=== PATIENT | female | born 1965 | race Caucasian/White ===

== ENCOUNTER → 2023-05-10 13:01 | Outpatient (REF) | payer BC, SELFPAY | LOC: HWWDC 13:01 | PROVIDERS: ATTENDING PHYSICIAN Obstetrics & Gynecology; FAMILY PHYSICIAN Internal Medicine; REFERRING PHYSICIAN Internal Medicine Hematology & Oncology | DX: Z12.31 Encounter for screening mammogram for malignant neoplasm of breast (principal) | CPT/HCPCS: 77063; 77067 ==

== ENCOUNTER → 2023-05-17 09:20 | Outpatient (REF) | payer BC, SELFPAY | LOC: WDC 09:20 | PROVIDERS: ATTENDING PHYSICIAN Obstetrics & Gynecology; FAMILY PHYSICIAN Internal Medicine | DX: R92.8 Other abnormal and inconclusive findings on diagnostic imaging of breast (principal) | CPT/HCPCS: 76642 ==

== ENCOUNTER → 2023-11-25 13:51 | Outpatient (REF) | payer BC, SELFPAY | LOC: HWRAD 13:51 | PROVIDERS: ATTENDING PHYSICIAN Obstetrics & Gynecology; FAMILY PHYSICIAN Internal Medicine | DX: N95.0 Postmenopausal bleeding (principal) | CPT/HCPCS: 76830; 76856 ==

== ENCOUNTER 2024-02-16 22:18 | Emergency (ER) | payer BC, SELFPAY ==
[2024-02-16 22:19] VITALS: BP 124/76
[2024-02-17 00:58] VITALS: BMI 29.9
--- NOTE | 2024-02-17 01:10 | ED.GENMED ---
History of Present Illness
<JIMBO Kelsey - Last Filed: 02/17/24 01:24>
General
Chief Complaint: Vaginal Bleeding
Source: patient
Exam Limitations: none
Time Seen by Provider: 02/17/24 00:55
Nursing documentation reviewed up to this point in time: agreed with
History of Present Illness
History of Present Illness:
Pt is a 58 yo F with PMH of Crohn's disease and uterine fibroids who presents to the ED for vaginal bleeding x 1 week. She states nothing has helped it to stop. She notes it is heavy and she goes through a pad about every 2 hours. Pt states she
entered menopause at age 41 and has had one episode of bleeding before back in 2023. She saw her [employer] for this and was diagnosed with uterine fibroids, but did not have follow up. She admits to associated pelvic pain that has been present
since onset of bleeding. She says it is episodic and crampy. Pt also admits to associated fever at home of 101.8F orally. She states she has not taken any medication to alleviate the pain. Pt went to urgent care earlier today for same symptoms and
dysuria where they diagnosed her with UTI and prescribed an abx, but she states it was worsening so she came here. Pt denies LIN, vomiting, diarrhea, chest pain, dyspnea.
Past History
<JIMBO Kelsey - Last Filed: 02/17/24 01:24>
Past History
ED Past Medical History: Asthma, Hypercholesterolemia and Other (Crohns, Erosive Gastritis, RA)
ED Past Surgical History: Cholecystectomy
Social History
Tobacco: Former smoker
Alcohol: Former
Personal:
Living: with family
Review of Systems
<JIMBO Kelsey - Last Filed: 02/17/24 01:24>
Review of Systems
Allergies reviewed?: Yes
Constitutional: Reports fever and chills; Denies fatigue or night sweats
EENT: Denies sore throat or runny nose
Respiratory: Denies cough or trouble breathing
Cardiac: Denies chest pain or palpitations
ABD/GI: Reports abdominal pain and nausea; Denies vomiting or diarrhea
: Reports dysuria, frequency, difficulty voiding and bleeding; Denies flank pain
Musculoskeletal: Denies back pain
Neurological: Denies dizzy or headache
Phy Exam
<JIMBO Kelsey - Last Filed: 02/17/24 01:24>
General Physical Exam
General Presentation: well appearing and no apparent distress
General age: appears stated age
General Skin: warm and dry
General Habitus: normal
General Mental: alert
General Hydration: appears well hydrated
Cardiovascular Exam
Cardiovascular Exam: regular rate/rhythm and no murmur
Pulmonary Exam
Pulmonary Exam: lungs clear and no respiratory distress
Gastrointestinal Exam
Gastrointestinal Exam: normal bowel sounds, soft and non distended
Palpation: generalized: Minimal tenderness
Neurological Exam
Neurological Exam: alert, oriented x3 and speech normal
Course
<JIMBO Kelsey - Last Filed: 02/17/24 01:24>
Orders/Labs/Results
Orders:
Orders
02/17/24 01:15
US Pelvis W Transvag Combined Urgent
Reason For Exam: vaginal bleeding
02/17/24 01:29
Blood Group&Type Urgent
Complete Blood Count/With Diff Urgent
Comprehensive Metabolic Panel Urgent
Urinalysis Reflex To Culture Urgent
Specimen Description:
Date Specimen was Collected: 02/17/24
Time Specimen was Collected: 01:27
Urine Microscopic Reflex Cult Urgent
Urine Culture Urgent
MELINA Source: U
Specimen Description:
Date Specimen was Collected: 02/17/24
Time Specimen was Collected: 01:27
02/17/24 01:36
0.9% Sodium Chloride 500 ml [Nss] 1,000 ml IV BOLUS
02/17/24 01:59
ABO2 Urgent
BBK Wristband Number:
Associate notified that ABO2 has been ordered: [id number]
Date: 02/17/24
Time: 01:53
Computer Lab Assistant ID: [id number]
Abnormal Lab Results
02/17/24
01:29
WBC 11.9 H 10^3/uL
(4.8-10.8)
Absolute Neuts (auto) 10.1 H 10^3/uL
(1.4-6.5)
Absolute Lymphs (auto) 1.0 L 10^3/uL
(1.2-3.4)
Absolute Monos (auto) 0.7 H 10^3/uL
(0.1-0.6)
Neutrophils % 84.9 H %
(42.2-75.2)
Lymphocytes % 8.1 L %
(20.5-51.1)
Glucose 121 H mg/dl
(70-99)
Ur Occult Blood Reflex 4+ A
(Negative)
Leukocyte Esterase Rfl 2+ A
(Negative)
Urine RBC >100 A /HPF
(0-2)
Urine WBC (Reflex) >100 A /HPF
(0-5)
Urine Bacteria (Reflex) Many A
(Negative)
02/17/24 01:29
02/17/24 01:29
Vital Signs
Initial and Last Documented VS:
Initial Vital Signs
Temp Pulse Resp BP Pulse Ox
99.7 F 114 16 124/76 97
02/16/24 22:19 02/16/24 22:19 02/16/24 22:19 02/16/24 22:19 02/16/24 22:19
Last Documented Vital Signs
Temp Pulse Resp BP Pulse Ox
99.7 F 99 16 136/63 97
02/16/24 22:19 02/17/24 01:35 02/17/24 01:35 02/17/24 01:35 02/17/24 01:35
<Nirav Kent, DO - Last Filed: 02/17/24 03:43>
Orders/Labs/Results
Orders:
Orders
02/17/24 01:15
US Pelvis W Transvag Combined Urgent
Reason For Exam: vaginal bleeding
02/17/24 01:29
Blood Group&Type Urgent
Complete Blood Count/With Diff Urgent
Comprehensive Metabolic Panel Urgent
Urinalysis Reflex To Culture Urgent
Specimen Description:
Date Specimen was Collected: 02/17/24
Time Specimen was Collected: 01:27
Urine Microscopic Reflex Cult Urgent
Urine Culture Urgent
MELINA Source: U
Specimen Description:
Date Specimen was Collected: 02/17/24
Time Specimen was Collected: 01:27
02/17/24 01:36
0.9% Sodium Chloride 500 ml [Nss] 1,000 ml IV BOLUS
02/17/24 01:59
ABO2 Urgent
BBK Wristband Number:
Associate notified that ABO2 has been ordered: [id number]
Date: 02/17/24
Time: 01:53
Computer Lab Assistant ID: [id number]
Abnormal Lab Results
02/17/24
01:29
WBC 11.9 H 10^3/uL
(4.8-10.8)
Absolute Neuts (auto) 10.1 H 10^3/uL
(1.4-6.5)
Absolute Lymphs (auto) 1.0 L 10^3/uL
(1.2-3.4)
Absolute Monos (auto) 0.7 H 10^3/uL
(0.1-0.6)
Neutrophils % 84.9 H %
(42.2-75.2)
Lymphocytes % 8.1 L %
(20.5-51.1)
Glucose 121 H mg/dl
(70-99)
Ur Occult Blood Reflex 4+ A
(Negative)
Leukocyte Esterase Rfl 2+ A
(Negative)
Urine RBC >100 A /HPF
(0-2)
Urine WBC (Reflex) >100 A /HPF
(0-5)
Urine Bacteria (Reflex) Many A
(Negative)
02/17/24 01:29
02/17/24 01:29
Vital Signs
Initial and Last Documented VS:
Initial Vital Signs
Temp Pulse Resp BP Pulse Ox
99.7 F 114 16 124/76 97
02/16/24 22:19 02/16/24 22:19 02/16/24 22:19 02/16/24 22:19 02/16/24 22:19
Last Documented Vital Signs
Temp Pulse Resp BP Pulse Ox
99.7 F 99 16 136/63 97
02/16/24 22:19 02/17/24 01:35 02/17/24 01:35 02/17/24 01:35 02/17/24 01:35
<JIMBO Kelsey - Last Filed: 02/17/24 01:24>
MDM/Problems Addressed
Differential Diagnosis Includes:
UTI, uterine fibroid complication
<JIMBO Kelsey - Last Filed: 02/17/24 01:24>
*Critical Care Note
Total Time (30-74mins, 75-104mins- exclusive of procedures): Not Applicable
<Nirav Kent DO - Last Filed: 02/17/24 03:43>
Update Note
Update Note:
Ultrasound pelvis
Comparison: November 25, 2023
IMPRESSION:
Enlarged myomatous uterus again seen, with largest transmural/submucosal fibroid measuring 7.0 x 4.5 x 5.0 cm, obliterating the endometrium.
Ovaries not visualized.
No pelvic free fluid.
Spoke with [employer] via [employer] text. She recommends discharge home and follow-up with her [employer].
ED Attending Note
<JIMBO Kelsey - Last Filed: 02/17/24 01:24>
-
Portions of this chart may have been created with voice recognition software.� Occasional wrong word or��sound alike� substitutions may have occurred due to the inherent limitations of voice recognition software.
<Nirav Kent DO - Last Filed: 02/17/24 03:43>
ED Attending Note
Patient seen and examined by attending physician: Yes
I performed the substantive portion of visit, reviewed & personally made and approve the management plan that is documented in note by myself or JUAN.: Yes
ED Attending Note:
This a pleasant 58-year-old female presents to the emergency department with vaginal bleeding that has been waxing and waning last week. Patient was in urgent care earlier this evening and diagnosed with a urinary tract infection and started on
antibiotics. Patient states that she had a similar episode of bleeding in November which was self-limited. She had an ultrasound at that time but did not remember the results. She reached out to her [employer] office but could not get in touch with
the provider so she came to the emergency department. Patient was seen in conjunction with the PA student. I have reviewed and agree with the history and treatment plan presented. On my independent physical exam, patient is awake, alert, and
oriented x3 minimal acute distress heart is regular rate and rhythm. Lungs are clear to auscultation bilaterally without wheezes rales or rhonchi. Abdomen is soft and nontender. Skin is warm and dry.
Plan is ultrasound of the abdomen pelvis.
Discharge Plan
Departure
Patient Disposition: Home (Routine Discharge)
Date of Disposition: 02/17/24
Time of Disposition: 03:40
Patient with high blood pressure during this ER visit?: Yes
Condition: Good
Discharge Problem:
Dysfunctional uterine bleeding
Instructions: BLOOD PRESSURE
Referrals:
Rainer Adair, DO [Family Provider] -
Interventions
Interventions:
*Risk Screen - Suicide Last Done: 02/16/24 22:19
*General Assessment Last Done: 02/16/24 22:19
*Neglect/Abuse Screening Last Done: 02/16/24 22:19
*ED COVID-19 Vaccine History Last Done: 02/16/24 22:19
ED-Female Genitourinary Assessment Last Done: 02/17/24 00:58
Discharge Date and Time
Print Language: CITIZEN OF [place]
[2024-02-17 01:35] VITALS: BP 136/63
[2024-02-17] MEDS: NSS 1000 IV (01:37)
[2024-02-17 01:45] LABS: Urine Albumin Trace (Neg - Trace); Urine Bilirubin Negative (Negative); Urine Character Slightly Cloudy (Clear); Urine Color Yellow; Urine Glucose Negative (Negative); Urine Ketone Negative (Negative); Urine Leukocyte 2+ (Negative); Urine Nitrite Negative (Negative); Urine Occult Blood 4+ (Negative); Urine Urobilinogen Negative (Neg - 1+)
[2024-02-17 01:46] LABS: % Basophils 0.5 % (0-2); % Eosinophils 0.3 % (0-6); % Immature Granulocytes 0.3 % (0-0.5); % Lymphocytes 8.1 % (20.5-51.1); % Monocytes 5.9 % (1.7-9.3); % Neutrophils 84.9 % (42.2-75.2); Absolute Basophils 0.1 10^3/uL (0-0.2); Absolute Monocytes 0.7 10^3/uL (0.1-0.6); Absolute Neutrophils 10.1 10^3/uL (1.4-6.5); Hematocrit 38.6 % (37.0-47.0); Mean Corp Hgb Conc. 33.7 g/dL (33.0-37.0); Mean Corpuscular Hgb 28.9 pg (27.0-31.0); Mean Corpuscular Volume 85.8 fL (81.0-99.0); Mean Platelet Volume 9.1 fL (7.4-10.4); Nucleated Red Blood Cells % 0 %; Platelet Count 245 10^3/uL (130-400); Red Cell Dist. Width 12.2 % (11.5-14.5); White Blood Cell Count 11.9 10^3/uL (4.8-10.8)
[2024-02-17 02:03] LABS: ALT (SGPT) 19 U/L (0-35); AST (SGOT) 30 U/L (14-36); Albumin 4.6 g/dl (3.5-5.0); Alkaline Phosphatase 80 U/L (38-126); Blood Urea Nitrogen 15 mg/dl (7-17); Calcium 9.2 mg/dl (8.4-10.2); Carbon Dioxide 28 mmol/L (22-30); Chloride 102 mmol/L (98-107); Estimated Creatinine Clearance 80 ml/min; Glucose 121 mg/dl (70-99); Potassium 4.3 mmol/L (3.5-5.1); Sodium 139 mmol/L (135-145); Total Bilirubin 0.6 mg/dl (0.2-1.3); Total Protein 7.3 g/dl (6.3-8.2); eGFR > 60.00
[2024-02-17 02:30] LABS: Urine Amorphous Seen; Urine Red Blood Cell >100 /HPF (0-2); Urine Squamous Cell >30 /LPF (Few); Urine Urothelial Cell >30 /LPF (FEW); Urine White Cell >100 /HPF (0-5)
[2024-02-17 02:32] LABS: Urine Bacteria Many (Negative)
== END 2024-02-17 04:10 | disposition home or self-care (01) ==
LOC: EMR 22:18
PROVIDERS: EMERGENCY PHYSICIAN Student in an Organized Health Care Education/Training Program; FAMILY PHYSICIAN Internal Medicine
DX: N93.8 Other specified abnormal uterine and vaginal bleeding (principal); J45.909 Unspecified asthma, uncomplicated; E78.00 Pure hypercholesterolemia, unspecified; Z87.891 Personal history of nicotine dependence; D25.9 Leiomyoma of uterus, unspecified; Z90.49 Acquired absence of other specified parts of digestive tract; Z87.19 Personal history of other diseases of the digestive system
CPT/HCPCS: 96360; 99284; 76830; 76856; 80053; 81003; 81015; 85025; 86900; 86901; 87086

== ENCOUNTER → 2024-08-23 14:25 | Outpatient (REF) | payer BC, SELFPAY | LOC: HWWDC 14:25 | PROVIDERS: ATTENDING PHYSICIAN Internal Medicine Hematology & Oncology; REFERRING PHYSICIAN Internal Medicine Rheumatology | DX: Z12.31 Encounter for screening mammogram for malignant neoplasm of breast (principal); Z13.820 Encounter for screening for osteoporosis; M81.0 Age-related osteoporosis without current pathological fracture | CPT/HCPCS: 77063; 77067; 77080 ==